=== PATIENT | female | born 1980 | race African-American/Black ===

== ENCOUNTER 2021-09-24 08:02 | Emergency (ER) | payer BC ==
[~2021-09-24] VITALS: Ht 162.6 cm; Wt 97.7 kg
[2021-09-24] MEDS ORDERED: MORPHINE SULFATE 4 MG/ML CPJ (NOT FOR IM USE) IV STA (08:25)
[2021-09-24 09:07] LABS: BASOPHILS % 0.7 % (0.0-2.0); CHLORIDE 101 mEq/L (98-107); HEMATOCRIT. 35.6 % (36.0-48.0); HEMOGLOBIN. 11.9 g/dL (12.0-16.0); LYMPHOCYTES % 18.7 % (20.0-50.0); MEAN CORPUSCULAR HEMOGLOBIN 29.7 pg (28.0-32.0); MEAN CORPUSCULAR VOLUME 88.9 fL (81.0-99.0); MEAN PLATELET VOLUME 10.4 fl (7.4-10.4); MONOCYTES % 10.9 % (2.0-8.0); NEUTROPHILS % 66.7 % (40.0-76.0); PLATELET 235 x1000/uL (130-400); RED BLOOD CELL COUNT 4.01 mill/uL (4.2-5.4); RED CELL DISTRIBUTION WIDTH 14.2 % (11.6-14.6)
[2021-09-24 09:26] LABS: CLARITY URINE TURBID (CLEAR); COLOR URINE RED (YELLOW); KETONES URINE NEGATIVE (NEGATIVE); LEUKOCYTE ESTERASE URINE 2+ (NEGATIVE); NITRITE URINE POSITIVE (NEGATIVE); OCCULT BLOOD URINE 2+ (NEGATIVE); PROTEIN URINE 2+ (NEGATIVE); SPECIFIC GRAVITY URINE 1.019 (1.005-1.030); UROBILINOGEN URINE 0.2 E.U./dL (0.2-1.0)
[2021-09-24 10:03] LABS: HCG SCREEN NEGATIVE
[2021-09-24] MEDS ORDERED: FENTANYL CITRATE/PF 50MCG/ML 2ML VIAL IV ONE (10:30)
[2021-09-24] MEDS ORDERED: CIPR-264 MT (12:34)
[2021-09-24 13:02] VITALS: BP 159/98
[2021-09-25] MEDS ORDERED: MORP15TA67 MT (00:46)
[2021-09-25] MEDS ORDERED: IBUP-2028 MT (00:46)
== END 2021-09-24 13:02 | disposition home or self-care (01) ==
LOC: ER 08:02
DX: D25.9 Leiomyoma of uterus, unspecified (principal); N83.202 Unspecified ovarian cyst, left side; I16.0 Hypertensive urgency; E87.1 Hypo-osmolality and hyponatremia; N39.0 Urinary tract infection, site not specified; D64.9 Anemia, unspecified; Z88.0 Allergy status to penicillin; Z88.1 Allergy status to other antibiotic agents; Z88.2 Allergy status to sulfonamides; Z88.8 Allergy status to other drugs, medicaments and biological substances
CPT/HCPCS: 36415; 76830; 76856; 80053; 81003; 84703; 85025; 96374; 96375; 99284; J2270; J3010

== ENCOUNTER 2021-09-24 22:33 | Emergency (ER) | payer BC ==
[~2021-09-24] VITALS: Ht 162.6 cm; Wt 98.0 kg
[~2021-09-24 22:33] MED LIST: CIPR-264 MT
[2021-09-24] MEDS ORDERED: MORPHINE SULFATE 4 MG/ML CPJ (NOT FOR IM USE) IV ONE (23:15)
[2021-09-25] MEDS ORDERED: MORP15TA67 MT (00:46)
[2021-09-25] MEDS ORDERED: IBUP-2028 MT (00:46)
[2021-09-25 01:03] VITALS: BP 153/94
== END 2021-09-25 01:08 | disposition home or self-care (01) ==
LOC: ER 22:33
DX: N83.202 Unspecified ovarian cyst, left side (principal); J45.909 Unspecified asthma, uncomplicated; I10 Essential (primary) hypertension; Z88.1 Allergy status to other antibiotic agents; Z88.0 Allergy status to penicillin; Z98.890 Other specified postprocedural states
CPT/HCPCS: 96374; 99283; J2270

== ENCOUNTER → 2021-10-12 | Outpatient (CLI) | payer BC ==
[~2021-10-12] MED LIST changes: +IBUP-2028 MT; +MORP15TA67 MT
== END | disposition home or self-care (01) ==
LOC: CARD 08:09
PROVIDERS: ATTEND Specialist
DX: I08.3 Combined rheumatic disorders of mitral, aortic and tricuspid valves (principal)
CPT/HCPCS: 93306

== ENCOUNTER 2021-12-15 20:09 | Emergency (ER) | payer BC ==
[~2021-12-15] VITALS: Ht 162.6 cm; Wt 98.0 kg
[2021-12-15] MEDS ORDERED: KETOROLAC 15MG/ML VIAL IV ONE (22:15)
[2021-12-15] MEDS ORDERED: ONDANSETRON HCL 4MG/2ML INJ IV ONE (22:30)
[2021-12-15] MEDS ORDERED: ONDANSETRON HCL 4MG TABLET PO ONE (22:30)
[2021-12-15] MEDS ORDERED: AMLODIPINE 10MG TABLET PO ONE (22:30)
[2021-12-16] VITALS: BP 189/123
[2021-12-16] MEDS ORDERED: MORP15TA67 MT (00:27)
[2021-12-16] MEDS ORDERED: CIPR-263 MT ×2 (00:27)
[2021-12-16] MEDS ORDERED: ONDA4TAB50 MT (00:29)
[2021-12-16] MEDS ORDERED: LEVO750T46 MT (01:44)
== END 2021-12-16 00:40 | disposition home or self-care (01) ==
LOC: ER 20:09
DX: N12 Tubulo-interstitial nephritis, not specified as acute or chronic (principal); I10 Essential (primary) hypertension; J45.909 Unspecified asthma, uncomplicated; Z88.0 Allergy status to penicillin; Z88.1 Allergy status to other antibiotic agents; Z88.2 Allergy status to sulfonamides; Z98.890 Other specified postprocedural states
CPT/HCPCS: 96374; 96375; 99284; J1885; J2405; Z7610

== ENCOUNTER 2021-12-16 10:07 | Inpatient (IN) | payer BC ==
[~2021-12-16] VITALS: Ht 162.6 cm; Wt 98.0 kg
[~2021-12-16 10:07] MED LIST changes: +CIPR-263 MT; +LEVO750T46 MT; +ONDA4TAB50 MT
[2021-12-16] MEDS ORDERED: MORPHINE SULFATE 4 MG/ML CPJ (NOT FOR IM USE) IV STA (10:29)
[2021-12-16] MEDS ORDERED: ONDANSETRON HCL 4MG/2ML INJ IV STA (10:29)
[2021-12-16] MEDS ORDERED: SODIUM CHLORIDE 0.9% 1,000 ML IV ONE (10:30)
[2021-12-16 11:20] LABS: BASOPHILS % 0.9 % (0.0-2.0); EOSINOPHILS % 0.6 % (0.0-5.0); HEMATOCRIT. 36.2 % (36.0-48.0); HEMOGLOBIN. 12.1 g/dL (12.0-16.0); LYMPHOCYTES % 11.4 % (20.0-50.0); MEAN CORPUSCULAR HEMOGLOBIN 29.4 pg (28.0-32.0); MEAN CORPUSCULAR VOLUME 88.1 fL (81.0-99.0); MEAN PLATELET VOLUME 9.7 fl (7.4-10.4); MONOCYTES % 6.5 % (2.0-8.0); NEUTROPHILS % 80.6 % (40.0-76.0); PLATELET 345 x1000/uL (130-400); RED BLOOD CELL COUNT 4.11 mill/uL (4.2-5.4); RED CELL DISTRIBUTION WIDTH 14.6 % (11.6-14.6)
[2021-12-16 11:31] LABS: CHLORIDE 95 mEq/L (98-107)
[2021-12-16 11:33] LABS: CLARITY URINE TURBID (CLEAR); COLOR URINE RED (YELLOW); KETONES URINE 1+ (NEGATIVE); LEUKOCYTE ESTERASE URINE 3+ (NEGATIVE); NITRITE URINE POSITIVE (NEGATIVE); OCCULT BLOOD URINE 2+ (NEGATIVE); PROTEIN URINE 2+ (NEGATIVE); SPECIFIC GRAVITY URINE 1.024 (1.005-1.030); UROBILINOGEN URINE 0.2 E.U./dL (0.2-1.0)
[2021-12-16 11:36] LABS: HCG SCREEN NEGATIVE
[2021-12-16] MEDS ORDERED: LEVOFLOXACIN 500MG PREMIX 100 ML IV ONE (12:00)
[2021-12-16] MEDS ORDERED: MORPHINE SULFATE 4 MG/ML CPJ (NOT FOR IM USE) IV ONE (12:00)
[2021-12-16] MEDS ORDERED: CLONIDINE 0.1MG TABLET PO PRN (15:45)
[2021-12-16] MEDS ORDERED: ONDANSETRON HCL 4MG/2ML INJ IV PRN (15:45)
[2021-12-16] MEDS: MORPHINE SULFATE 2 MG/ML CPJ (NOT FOR IM USE) IV PRN ×2 (16:01→23:26)
[2021-12-16] MEDS: AMLODIPINE 10MG TABLET PO SCH (16:02)
[2021-12-16] MEDS: DEXT 5%/0.9% NACL KCL 20MEQ/L 1,000 ML IV NR (17:00)
[2021-12-16] MEDS ORDERED: MORPHINE SULFATE 2 MG/ML CPJ (NOT FOR IM USE) IV PRN (20:30)
[2021-12-16] MEDS: PANTOPRAZOLE SODIUM 40 MG/VIAL IV SCH (21:50)
[2021-12-16] MEDS: HEPARIN 5000 UNITS/ML VIAL SUBCUT SCH (21:51)
[2021-12-16 22:00] VITALS: BP 159/94
[2021-12-17] VITALS: BP 145/75
[2021-12-17 04:00] VITALS: BP 140/77
[2021-12-17] MEDS: MORPHINE SULFATE 2 MG/ML CPJ (NOT FOR IM USE) IV PRN (06:38)
[2021-12-17 06:42] LABS: BASOPHILS % 0.4 % (0.0-2.0); EOSINOPHILS % 0.9 % (0.0-5.0); HEMATOCRIT. 32.1 % (36.0-48.0); HEMOGLOBIN. 10.5 g/dL (12.0-16.0); LYMPHOCYTES % 8.9 % (20.0-50.0); MEAN CORPUSCULAR HEMOGLOBIN 29.2 pg (28.0-32.0); MEAN CORPUSCULAR VOLUME 89.1 fL (81.0-99.0); MEAN PLATELET VOLUME 9.4 fl (7.4-10.4); MONOCYTES % 11.8 % (2.0-8.0); PLATELET 299 x1000/uL (130-400); RED CELL DISTRIBUTION WIDTH 14.6 % (11.6-14.6)
[2021-12-17 06:56] LABS: CHLORIDE 100 mEq/L (98-107)
[2021-12-17 08:00] VITALS: BP 165/99
[2021-12-17] MEDS: ACETAMINOPHEN 325MG TABLET PO PRN ×2 (09:20→20:44)
[2021-12-17] MEDS: PANTOPRAZOLE SODIUM 40 MG/VIAL IV SCH (09:21)
[2021-12-17] MEDS: HEPARIN 5000 UNITS/ML VIAL SUBCUT SCH ×2 (09:21→20:44)
[2021-12-17] MEDS: AMLODIPINE 10MG TABLET PO SCH (09:21)
[2021-12-17] MEDS ORDERED: NALOXONE HCL 0.4MG/ML VIAL IV PRN (10:00)
[2021-12-17] MEDS: DEXT 5%/0.9% NACL KCL 20MEQ/L 1,000 ML IV NR (11:32)
[2021-12-17] MEDS: METOCLOPRAMIDE HCL 10MG/2ML VIAL IV SCH ×2 (11:32→17:48)
[2021-12-17] MEDS: DEXT 5%/0.9% NACL KCL 20MEQ/L 1,000 ML IV SCH (11:33)
[2021-12-17 12:00] VITALS: BP 127/76
[2021-12-17] MEDS ORDERED: LEVOFLOXACIN 500MG PREMIX 100 ML IV SCH (15:00)
[2021-12-17] MEDS: HYDROMORPHONE HCL/PF 2MG/ML CPJ IV PRN (15:19)
[2021-12-17 16:00] VITALS: BP 127/77
[2021-12-17] MEDS: LEVOFLOXACIN 500MG PREMIX 100 ML IV SCH (17:48)
[2021-12-17] MEDS: DOCUSATE SODIUM 250MG CAPSULE PO SCH (17:48)
[2021-12-17 20:00] VITALS: BP 142/77
[2021-12-18] VITALS: BP 113/60
[2021-12-18] MEDS: DEXT 5%/0.9% NACL KCL 20MEQ/L 1,000 ML IV SCH ×2 (03:40→21:17)
[2021-12-18 04:00] VITALS: BP 135/72
[2021-12-18] MEDS: METOCLOPRAMIDE HCL 10MG/2ML VIAL IV SCH ×5 (05:31→23:51)
[2021-12-18] MEDS: HYDROMORPHONE HCL/PF 2MG/ML CPJ IV PRN ×4 (05:32→17:04)
[2021-12-18 06:13] LABS: HEMOGLOBIN. 10.7 g/dL (12.0-16.0); MEAN CORPUSCULAR HEMOGLOBIN 29.3 pg (28.0-32.0); MEAN PLATELET VOLUME 9.3 fl (7.4-10.4); PLATELET 277 x1000/uL (130-400); RED BLOOD CELL COUNT 3.64 mill/uL (4.2-5.4); RED CELL DISTRIBUTION WIDTH 14.8 % (11.6-14.6)
[2021-12-18 08:00] VITALS: BP 147/91
[2021-12-18 09:38] LABS: CHLORIDE 100 mEq/L (98-107)
[2021-12-18] MEDS: DOCUSATE SODIUM 250MG CAPSULE PO SCH (09:39)
[2021-12-18] MEDS: HEPARIN 5000 UNITS/ML VIAL SUBCUT SCH ×2 (09:39→21:17)
[2021-12-18] MEDS: AMLODIPINE 10MG TABLET PO SCH (09:39)
[2021-12-18] MEDS: FAMOTIDINE 20MG/2ML VIAL IV SCH ×2 (09:39→21:17)
[2021-12-18 09:47] LABS: PHOSPHORUS 2.9 mg/dL (2.5-4.9)
[2021-12-18] MEDS ORDERED: POTASSIUM CHLORIDE 20MEQ TABLET SR PO SCH (10:00)
[2021-12-18] MEDS: LEVOFLOXACIN 500MG PREMIX 100 ML IV SCH (10:19)
[2021-12-18 12:00] VITALS: BP 145/89
[2021-12-18] MEDS ORDERED: MAGNESIUM 2 G PREMIX 50 ML IV SCH (12:00)
[2021-12-18] MEDS ORDERED: MAGNESIUM 2 G PREMIX 50 ML IV NR (14:00)
[2021-12-18 16:00] VITALS: BP 172/110
[2021-12-18 20:00] VITALS: BP 103/58
[2021-12-18 21:10] LABS: PLATELET ESTIMATE NORMAL
[2021-12-18] MEDS ORDERED: ACETAMINOPHEN 325MG TABLET PO PRN (22:15)
[2021-12-19] VITALS: BP 128/73
[2021-12-19] MEDS: HYDROMORPHONE HCL/PF 2MG/ML CPJ IV PRN (00:01)
[2021-12-19 04:00] VITALS: BP 142/76
[2021-12-19] MEDS: METOCLOPRAMIDE HCL 10MG/2ML VIAL IV SCH ×2 (05:12→12:00)
[2021-12-19] MEDS: DOCUSATE SODIUM 250MG CAPSULE PO SCH (08:48)
[2021-12-19] MEDS: FAMOTIDINE 20MG/2ML VIAL IV SCH (08:48)
[2021-12-19] MEDS: AMLODIPINE 10MG TABLET PO SCH (08:49)
[2021-12-19] MEDS: HEPARIN 5000 UNITS/ML VIAL SUBCUT SCH (08:50)
[2021-12-19] MEDS ORDERED: MEDROXYPROGESTERONE ACET 5MG TABLET PO SCH (09:00)
[2021-12-19] MEDS ORDERED: POTASSIUM CHLORIDE 20MEQ TABLET SR PO NR (09:30)
[2021-12-19] MEDS ORDERED: MAGNESIUM OXIDE 400MG TABLET PO SCH (09:30)
[2021-12-19] MEDS ORDERED: HYDROMORPHONE HCL/PF 2MG/ML CPJ IM PRN (09:45)
[2021-12-19] MEDS ORDERED: LEVOFLOXACIN 500MG TABLET PO SCH (11:00)
[2021-12-19 15:03] VITALS: BP 139/74
== END 2021-12-19 15:41 | disposition home or self-care (01) | DRG 690 ==
LOC: ER 10:07 → 8WST 14:15 → ENRESERV 18:56
PROVIDERS: ADMIT Internal Medicine Nephrology; ATTEND Internal Medicine Nephrology
DX: N10 Acute pyelonephritis (principal); E66.9 Obesity, unspecified; I10 Essential (primary) hypertension; J45.909 Unspecified asthma, uncomplicated; K59.00 Constipation, unspecified; D25.9 Leiomyoma of uterus, unspecified; K57.90 Diverticulosis of intestine, part unspecified, without perforation or abscess without bleeding; N93.9 Abnormal uterine and vaginal bleeding, unspecified; Z88.0 Allergy status to penicillin; Z88.1 Allergy status to other antibiotic agents; Z88.8 Allergy status to other drugs, medicaments and biological substances; Z91.018 Allergy to other foods; Z88.2 Allergy status to sulfonamides; Z68.37 Body mass index [BMI] 37.0-37.9, adult; Z90.79 Acquired absence of other genital organ(s); Z82.49 Family history of ischemic heart disease and other diseases of the circulatory system; Z83.3 Family history of diabetes mellitus; Z80.8 Family history of malignant neoplasm of other organs or systems
CPT/HCPCS: 36415; 80048; 80053; 81003; 83605; 83735; 84100; 84703; 85025; 93005; 99285; C9113; J1170; J1644; J1956; J2270; J2405; J2765; J3475; J3490; J7030

== ENCOUNTER 2021-12-25 21:19 | Inpatient (IN) | payer BC ==
[~2021-12-25] VITALS: Ht 162.6 cm; Wt 95.7 kg
[~2021-12-25 21:19] MED LIST changes: -CIPR-263 MT
[2021-12-25] MEDS ORDERED: MORPHINE SULFATE 4 MG/ML CPJ (NOT FOR IM USE) IV STA (21:54)
[2021-12-25] MEDS ORDERED: ONDANSETRON HCL 4MG/2ML INJ IV STA (21:54)
[2021-12-25 22:07] LABS: CLARITY URINE CLEAR (CLEAR); COLOR URINE YELLOW (YELLOW); KETONES URINE NEGATIVE (NEGATIVE); LEUKOCYTE ESTERASE URINE 1+ (NEGATIVE); NITRITE URINE NEGATIVE (NEGATIVE); OCCULT BLOOD URINE NEGATIVE (NEGATIVE); PROTEIN URINE 2+ (NEGATIVE); SPECIFIC GRAVITY URINE 1.018 (1.005-1.030); UROBILINOGEN URINE 0.2 E.U./dL (0.2-1.0)
[2021-12-25 23:00] LABS: BASOPHILS % 0.8 % (0.0-2.0); EOSINOPHILS % 1.5 % (0.0-5.0); HEMATOCRIT. 32.3 % (36.0-48.0); HEMOGLOBIN. 10.6 g/dL (12.0-16.0); LYMPHOCYTES % 15.4 % (20.0-50.0); MEAN CORPUSCULAR HEMOGLOBIN 28.9 pg (28.0-32.0); MEAN CORPUSCULAR VOLUME 87.8 fL (81.0-99.0); MONOCYTES % 12.8 % (2.0-8.0); NEUTROPHILS % 69.5 % (40.0-76.0); PLATELET 333 x1000/uL (130-400); RED BLOOD CELL COUNT 3.68 mill/uL (4.2-5.4); RED CELL DISTRIBUTION WIDTH 14.4 % (11.6-14.6)
[2021-12-25] MEDS ORDERED: LEVOFLOXACIN 750MG PREMIX 150 ML IV NR (23:00)
[2021-12-25 23:07] LABS: CHLORIDE 102 mEq/L (98-107)
[2021-12-26] MEDS ORDERED: MORPHINE SULFATE 4 MG/ML CPJ (NOT FOR IM USE) IV ONE (00:45)
[2021-12-26] MEDS ORDERED: GUAIFENESIN 200MG/10ML SUGAR FREE UDC PO PRN (05:15)
[2021-12-26] MEDS ORDERED: ACETAMINOPHEN 325MG TABLET PO PRN (05:15)
[2021-12-26] MEDS ORDERED: ONDANSETRON HCL 4MG/2ML INJ IV PRN (05:15)
[2021-12-26] MEDS ORDERED: MAGNESIUM/ALUMINUM HYDROXIDE/SIMETHICONE 30ML UDC PO PRN (05:15)
[2021-12-26] MEDS ORDERED: DOCUSATE SODIUM 100MG CAPSULE PO PRN (05:15)
[2021-12-26] MEDS: SODIUM CHLORIDE 0.45% 1,000 ML IV SCH ×2 (05:20→21:55)
[2021-12-26] MEDS: TRAMADOL 50MG TABLET PO PRN ×2 (05:40→17:49)
[2021-12-26] MEDS: AMLODIPINE 10MG TABLET PO SCH (09:00)
[2021-12-26 14:30] VITALS: BP 152/96
[2021-12-26 16:00] VITALS: BP 148/75
[2021-12-26 20:00] VITALS: BP 144/106
[2021-12-26] MEDS ORDERED: LEVOFLOXACIN 500MG PREMIX 100 ML IV SCH ×2 (21:00→22:00)
[2021-12-27 00:24] VITALS: BP 137/96
[2021-12-27] MEDS: TRAMADOL 50MG TABLET PO PRN ×2 (00:30→09:29)
[2021-12-27 04:00] VITALS: BP 148/101
[2021-12-27 07:56] LABS: CHLORIDE 102 mEq/L (98-107)
[2021-12-27 08:00] VITALS: BP 143/98
[2021-12-27 08:06] LABS: BASOPHILS % 1.1 % (0.0-2.0); HEMATOCRIT. 29.6 % (36.0-48.0); HEMOGLOBIN. 9.9 g/dL (12.0-16.0); LYMPHOCYTES % 21.2 % (20.0-50.0); MEAN CORPUSCULAR HEMOGLOBIN 29.8 pg (28.0-32.0); MEAN CORPUSCULAR VOLUME 89.2 fL (81.0-99.0); MONOCYTES % 14.9 % (2.0-8.0); NEUTROPHILS % 58.8 % (40.0-76.0); PLATELET 272 x1000/uL (130-400); RED BLOOD CELL COUNT 3.32 mill/uL (4.2-5.4); RED CELL DISTRIBUTION WIDTH 14.7 % (11.6-14.6)
[2021-12-27 08:17] LABS: HDL CHOLESTEROL 29 mg/dL (40-59); LDL CHOLESTEROL 88 mg/dL (5-100)
[2021-12-27] MEDS: AMLODIPINE 10MG TABLET PO SCH (09:26)
[2021-12-27] MEDS ORDERED: LEVO500T90 MT (12:03)
[2021-12-27] MEDS ORDERED: NALOXONE HCL 0.4MG/ML VIAL IV PRN (12:45)
[2021-12-27 14:38] VITALS: BP 148/101
== END 2021-12-27 19:20 | disposition home or self-care (01) | DRG 690 ==
LOC: ER 21:19 → EDBEDREQ 12-26 07:09 → EDBEDREQSVC 12-26 07:10 → ENRESERV 12-26 13:14 → 4WST 12-26 14:25
PROVIDERS: ADMIT Hospitalist; ATTEND Hospitalist
DX: N10 Acute pyelonephritis (principal); I10 Essential (primary) hypertension; J45.909 Unspecified asthma, uncomplicated; D25.9 Leiomyoma of uterus, unspecified; N83.202 Unspecified ovarian cyst, left side; D64.9 Anemia, unspecified; Z88.0 Allergy status to penicillin; Z88.1 Allergy status to other antibiotic agents; Z79.899 Other long term (current) drug therapy; Z87.440 Personal history of urinary (tract) infections; K59.00 Constipation, unspecified
CPT/HCPCS: 36415; 74176; 80053; 80061; 81003; 83605; 85025; 99285; J1956; J2270; J2405

== ENCOUNTER → 2022-01-02 | Outpatient (CLI) | payer BC ==
[~2022-01-02] MED LIST changes: +LEVO500T90 MT; -LEVO750T46 MT
[2022-01-02 12:53] LABS: CLARITY URINE CLEAR (CLEAR); COLOR URINE DARK YELLOW (YELLOW); KETONES URINE TRACE (NEGATIVE); LEUKOCYTE ESTERASE URINE 1+ (NEGATIVE); NITRITE URINE NEGATIVE (NEGATIVE); OCCULT BLOOD URINE 3+ (NEGATIVE); PROTEIN URINE TRACE (NEGATIVE); SPECIFIC GRAVITY URINE 1.023 (1.005-1.030)
[2022-01-02 12:57] LABS: HEMATOCRIT. 31.9 % (36.0-48.0); HEMOGLOBIN. 10.4 g/dL (12.0-16.0); MEAN CORPUSCULAR HEMOGLOBIN 28.9 pg (28.0-32.0); MEAN CORPUSCULAR VOLUME 88.7 fL (81.0-99.0); MEAN PLATELET VOLUME 9.2 fl (7.4-10.4); PLATELET 288 x1000/uL (130-400); RED CELL DISTRIBUTION WIDTH 15.2 % (11.6-14.6)
[2022-01-02 23:04] LABS: PLATELET ESTIMATE NORMAL
== END | disposition home or self-care (01) ==
LOC: LAB 12:20
PROVIDERS: ATTEND Family Medicine Adult Medicine
DX: E55.9 Vitamin D deficiency, unspecified (principal); D50.8 Other iron deficiency anemias; R80.9 Proteinuria, unspecified; I10 Essential (primary) hypertension; K31.1 Adult hypertrophic pyloric stenosis
CPT/HCPCS: 36415; 81003; 82306; 82310; 85025

== ENCOUNTER 2022-03-06 15:08 | Outpatient (CLI) | payer BC ==
[~2022-03-06 15:08] MED LIST changes: +HYDROMORPHONE HCL/PF 2MG/ML CPJ ONE; +LEVO-65 MT; -LEVO500T90 MT
== END 2022-03-06 23:59 | disposition home or self-care (01) ==
LOC: LAB 15:08
PROVIDERS: ATTEND Obstetrics & Gynecology Obstetrics
DX: U07.1 COVID-19 (principal); I10 Essential (primary) hypertension; J45.909 Unspecified asthma, uncomplicated; Z88.1 Allergy status to other antibiotic agents; Z88.0 Allergy status to penicillin; Z88.2 Allergy status to sulfonamides
CPT/HCPCS: 96372; J1170

== ENCOUNTER 2022-05-05 00:15 | Inpatient (IN) | payer BC ==
[~2022-05-05] VITALS: Ht 162.6 cm; Wt 83.0 kg
[~2022-05-05 00:15] MED LIST changes: -HYDROMORPHONE HCL/PF 2MG/ML CPJ ONE
[2022-05-05] MEDS ORDERED: ONDANSETRON HCL 4MG/2ML INJ IV STA ×2 (00:21→04:04)
[2022-05-05 00:52] LABS: BASOPHILS % 0.7 % (0.0-2.0); HEMATOCRIT. 28.2 % (36.0-48.0); HEMOGLOBIN. 9.1 g/dL (12.0-16.0); LYMPHOCYTES % 37.5 % (20.0-50.0); MEAN CORPUSCULAR VOLUME 89.6 fL (81.0-99.0); MEAN PLATELET VOLUME 7.2 fl (7.4-10.4); MONOCYTES % 11.5 % (2.0-8.0); NEUTROPHILS % 47.3 % (40.0-76.0); PLATELET 457 x1000/uL (130-400); RED BLOOD CELL COUNT 3.15 mill/uL (4.2-5.4); RED CELL DISTRIBUTION WIDTH 19.7 % (11.6-14.6)
[2022-05-05 00:58] LABS: CHLORIDE 100 mEq/L (98-107)
[2022-05-05 01:05] LABS: HCG SCREEN NEGATIVE
[2022-05-05 01:23] LABS: INR 1.1; PROTHROMBIN TIME 12.2 sec (9.6-11.0)
[2022-05-05 01:27] LABS: CLARITY URINE CLEAR (CLEAR); COLOR URINE YELLOW (YELLOW); KETONES URINE TRACE (NEGATIVE); LEUKOCYTE ESTERASE URINE TRACE (NEGATIVE); NITRITE URINE NEGATIVE (NEGATIVE); OCCULT BLOOD URINE NEGATIVE (NEGATIVE); PH URINE 7.5 (4.5-8.0); PROTEIN URINE 1+ (NEGATIVE); SPECIFIC GRAVITY URINE 1.013 (1.005-1.030); UROBILINOGEN URINE 0.2 E.U./dL (0.2-1.0)
[2022-05-05] MEDS ORDERED: MORPHINE SULFATE 4 MG/ML CPJ (NOT FOR IM USE) IV STA ×2 (01:53→04:04)
[2022-05-05] MEDS ORDERED: ONDANSETRON HCL 4MG/2ML INJ IV NR ×2 (02:15→04:45)
[2022-05-05] MEDS ORDERED: MORPHINE SULFATE 4 MG/ML CPJ (NOT FOR IM USE) IV NR ×3 (02:15→04:45)
[2022-05-05] MEDS: SODIUM CHLORIDE 0.9% 1,000 ML IV NR ×6 (02:26→07:00)
[2022-05-05] MEDS ORDERED: LEVOFLOXACIN 500MG PREMIX 100 ML IV NR (02:30)
[2022-05-05] MEDS ORDERED: AMLODIPINE 2.5MG TABLET PO ONE ×2 (07:00→08:45)
[2022-05-05] MEDS ORDERED: DEXT 5%/0.45% NACL 500ML 1,000 ML IV ONE (09:15)
[2022-05-05] MEDS ORDERED: ONDANSETRON HCL 4MG/2ML INJ IV PRN (09:15)
[2022-05-05] MEDS ORDERED: HYDRALAZINE 20MG/ML VIAL IV SCH (09:15)
[2022-05-05] MEDS ORDERED: DEXT 5%/0.45% NACL 1000ML 1,000 ML IV ONE (09:45)
[2022-05-05] MEDS ORDERED: ACETAMINOPHEN 325MG TABLET PO PRN ×2 (11:00)
[2022-05-05] MEDS: DEXT 5%/0.45% NACL 1000ML 1,000 ML IV SCH ×2 (11:26→19:38)
[2022-05-05] MEDS ORDERED: NALOXONE HCL 0.4MG/ML VIAL IV PRN (11:30)
[2022-05-05] MEDS: LEVOFLOXACIN 500MG PREMIX 100 ML IV SCH (11:49)
[2022-05-05] MEDS: MORPHINE SULFATE 4 MG/ML CPJ (NOT FOR IM USE) IV PRN ×4 (11:49→23:38)
[2022-05-05] MEDS: ENOXAPARIN 40MG/0.4ML SYR SUBCUT SCH ×2 (11:49→12:00)
[2022-05-05] MEDS: CLONIDINE 0.1MG TABLET PO PRN ×2 (11:54→19:38)
[2022-05-05] MEDS ORDERED: POTASSIUM CHLORIDE INJ 40 MEQ in DEXT 5% WATER 500 ML IV NR (12:00)
[2022-05-05] MEDS: ONDANSETRON HCL 4MG/2ML INJ IV PRN ×2 (15:38→23:37)
[2022-05-06] MEDS: DEXT 5%/0.45% NACL 1000ML 1,000 ML IV SCH ×2 (03:40→11:27)
[2022-05-06] MEDS: DIPHENHYDRAMINE 50MG/ML VIAL IV PRN ×2 (04:17→10:57)
[2022-05-06] MEDS: ONDANSETRON HCL 4MG/2ML INJ IV PRN ×2 (04:17→10:57)
[2022-05-06] MEDS: KETOROLAC 30MG/ML VIAL IV PRN ×2 (04:17→10:57)
[2022-05-06] MEDS: MORPHINE SULFATE 4 MG/ML CPJ (NOT FOR IM USE) IV PRN ×3 (05:54→14:37)
[2022-05-06] MEDS: ENOXAPARIN 40MG/0.4ML SYR SUBCUT SCH (09:00)
[2022-05-06] MEDS ORDERED: PANTOPRAZOLE SODIUM 40 MG/VIAL IV SCH (09:00)
[2022-05-06] MEDS: LEVOFLOXACIN 500MG PREMIX 100 ML IV SCH (12:00)
[2022-05-06 17:52] VITALS: BP 119/69
== END 2022-05-06 17:53 | disposition home or self-care (01) | DRG 391 ==
LOC: ER 00:31 → MICUSO 05:07
PROVIDERS: ADMIT Internal Medicine; ATTEND Internal Medicine
DX: R11.2 Nausea with vomiting, unspecified (principal); E43 Unspecified severe protein-calorie malnutrition; N39.0 Urinary tract infection, site not specified; R10.9 Unspecified abdominal pain; E87.6 Hypokalemia; J45.909 Unspecified asthma, uncomplicated; R63.0 Anorexia; I10 Essential (primary) hypertension; D25.9 Leiomyoma of uterus, unspecified; Z68.31 Body mass index [BMI] 31.0-31.9, adult; Z88.0 Allergy status to penicillin; Z88.1 Allergy status to other antibiotic agents; Z88.2 Allergy status to sulfonamides
CPT/HCPCS: 36415; 74176; 80053; 81003; 84703; 85025; 99285; C9113; J0360; J1200; J1650; J1885; J1956; J2270; J2405; J3480; J7060

== ENCOUNTER 2023-02-04 17:14 | Emergency (ER) | payer BC ==
[~2023-02-04] VITALS: Ht 165.1 cm; Wt 91.0 kg
[2023-02-04 17:29] VITALS: BP 195/114; PULSE 84; RESP 18; O2SAT 100
[2023-02-04 18:15] VITALS: TEMP 98.5
[2023-02-04] MEDS ORDERED: METH-653 MT (18:15)
[2023-02-04] MEDS ORDERED: ACETAMINOPHEN 325MG TABLET PO ONE (18:15)
== END 2023-02-04 19:06 | disposition home or self-care (01) ==
LOC: ER 17:14
DX: M54.2 Cervicalgia (principal); J45.909 Unspecified asthma, uncomplicated; I10 Essential (primary) hypertension; Z88.0 Allergy status to penicillin; Z98.890 Other specified postprocedural states; Z88.8 Allergy status to other drugs, medicaments and biological substances; Z88.2 Allergy status to sulfonamides; V89.0XXA Person injured in unspecified motor-vehicle accident, nontraffic, initial encounter; Y93.89 Activity, other specified; Y92.89 Other specified places as the place of occurrence of the external cause; Y99.8 Other external cause status
CPT/HCPCS: 99283